=== PATIENT | female | born 1950 | race Caucasian/White ===

== ENCOUNTER → 2016-12-26 | Outpatient (CLI) | payer MEDICARE, OTHER ==
[~2016-12-26] MED LIST: ACETAMINOPHEN FT; ACETAMINOPHEN PO; ALBUTEROL MININEB; ALBUTEROL0.83 MG/ML IH; ALBUTEROL0.83 MG/ML INH; ALL DAY ALLERGY10 M3 GT; AMOX/K CLAV; ANALGESIC CREME86 GM TOP; ANTI FUNGAL AD; ASPER-FLEX85 GM; ASPER-FLEX85 GM TOP; ASPERCREME HE70.8 GM TP; ASPERCREME76.5 GM EPI; ATROVENT HFA12.9 GM INH; AURALGAN OTIC S10 M1 AD; AURALGAN OTIC S10 ML AD; AURALGAN OTIC S14 ML OT; BACID GT; BACID PO; BACITRACIN3.5 G1; BACITRACIN3.5 G1 TOP; BACITRACIN3.5 GM OU; BACTRIM DS TABL1 TA1 FT; BACTROBAN22 GM EXT; BACTROBAN22 GM TOP; BAYER CHEWABLE81 MG FT; BAYER CHEWABLE81 MG GT; BAYER CHEWABLE81 MG PEG; BETAMETHASONE D50 GM TOP; BISACODYL10 MG/SUPP PR; BORIC ACID AD; CALCIUM CITRATE1 T11 PO; CALMOSEPTINE O3.5 GM TOP; CARAFATE GT; CARAFATE1 G GT; CARAFATE1 G PO; CENTRAM-CA9 MG/15 ML FT; CENTRUM GT; CERTA VITE9 MG/15 ML GT; CERTAGEN GT; CERTAGEN PEG; CERTAGEN PO; CERTAVITE GT; CETIRIZINE5 MG/5 ML GT; CHILDREN'S160 MG/10 GT; CIPRO PO; CITRACAL + D CA1 TA1 GT; CLOTRIMAZOLE 1% AD; CLOTRIMAZOLE30 ML AD; DEPAKOTE SPRIN125 MG GT; DIASTAT ACUDIA1 EAC1; DIASTAT ACUDIAL1 KIT; DIASTAT ACUDIAL1 KIT RC; DIASTAT10 MG; DIASTAT10 MG PR; DIASTAT2.5 MG PR; DOXYCYCLINE PO; DUONEB 2.5-0.5 M3 ML NEB; E.E.S. 200200 MG/5 M GT; E.E.S. 200200 MG/51 PO; FAMOTIDINE GT; FEROSUL220 MG/5 M PEG; FISH OIL 1,0001 EACH GT; FLEET ENEMA133 M1 PR; FLEET ENEMA133 ML RC; FLONASE 0.05% N16 G1; FLONASE SENSIM9.9 ML; FLUTICASONE PRO16 GM; GAS RELIEF40 MG/0.1 FT; GAS RELIEF40 MG/0.1 GT; GAS RELIEF40 MG/0.1 PEG; GENASYME GT; GENASYME TOP; GLACIAL ACETIC A1 ML AD; GUAIFENESIN PEG; IMMUNOTHERAPY SUBQ; IPRAT-ALBUT 0.5-3 ML INH; IPRATR-ALBUTEROL3 ML IH; IPRATROPIUM0.2 MG/ML NEB; KEPPRA100 MG/ML FT; KEPPRA100 MG/ML PEG; KEPPRA100 MG/ML PO; KEPPRA1000 MG GT; KEPPRA1000 MG PEG; KEPPRA750 M1 GT; KEPPRA750 MG GT; KEPPRA750 MG PEG; KEPPRA750 MG PO; LACTULOSE10 G/15 M1 FT; LACTULOSE10 G/15 M1 PEG; LACTULOSE10 G/15 M2 PEG; LACTULOSE10 G/15 ML GT; LACTULOSE10 G/15 ML PO; LACTULOSE10 GM/15 M GT; LACTULOSE10 GM/151 GT; LAMICTAL GT; LAMICTAL PO; LAMICTAL150 MG DOB; LAMICTAL150 MG GT; LAMICTAL150 MG PEG; LAMICTAL25 MG FT; LAMICTAL25 MG GT; LAMICTAL25 MG PEG; LAMICTAL25 MG PO; LEVAQUIN PO; LEVETIRACETAM500 M1 GT; LEVOTHYROXINE75 MC1 PEG; LEVOTHYROXINE75 MCG PEG; LEVOTHYROXINE75 MCG PO; LEVOXYL75 MCG PO; LOVASTATIN10 MG GT; LOVASTATIN10 MG PEG; LOVASTATIN20 M1 FT; LOVASTATIN20 M2 PEG; MAPAP160 MG/51 PR; MEROPENEM IV; METHENAMINE HIPP1 GM GT; MEVACOR GT; MIRALAX17 GM FT; MIRALAX17 GM GT; MIRALAX17 GM PEG; MIRALAX255 GM GT; MULTIVITAMINS1 EAC3; MY FAVORITE MU237 ML PEG; MYCOSTATIN15 GM TOP; MYLICON40 MG/0.1 GT; MYLICON40 MG/0.6 GT; NEUTROGENA T TOP; NEUTROGENA T/G132 M1 TP; NEXIUM GT; NEXIUM PEG; NEXIUM40 M1 GT; NEXIUM40 M1 PO; NEXIUM40 MG/PACK GT; NEXIUM40 MG/PACK PO; NILSTAT PO; OMEGA 3 FISH OI1 CAP PEG; OMEGA 3 FISH1 CAP.EC GT; OYSTER CALCIUM500 MG GT; PATIENT'S PHARMACY; PHENERGAN PR; PHENERGAN12.5 M2 RC; PREVACID GT; PRILOSEC20 MG GT; PROVENTIL0.83 MG/ML IH; PULMICORT200 MCG/AE INH; Q-PAP160 MG/51 GT; RISAMINE OINTM113 GM; RISAMINE OINTM113 GM TOP; RISAMINE OINTM113 GM TP; ROBITUSSIN100 MG/51 GT; ROCEPHIN IV; SENNA LAXATIVE25 MG PO; SENNA8.6 M1 GT; SENNA8.6 M1 PEG; SENNA8.8 MG/5 M FT; SENNA8.8 MG/5 M GT; SENNA8.8 MG/5 M PEG; SINGULAIR GT; SOD BICARBONATE GT; SYNTHROID GT; SYNTHROID75 MCG GT; THERAGRAN1 TAB GT; TIROSINT75 MCG GT; TOBRADEX AD; TOBRADEX EYE DRO5 ML AD; TOBRADEX EYE DRO5 ML OU; TOBREX5 ML AD; TRILEPTAL GT; TROLAMINE1 ML TOP; TYLENOL325 MG/10. PEG; TYLENOL80 MG/0.2 PEG; VASOLEX OINTMEN30 GM TOP; VICKS VAPORUB O50 GM; VICKS VAPORUB O50 GM TOP; VIMPAT GT; VIMPAT100 MG GT; VIMPAT100 MG PEG; VIMPAT200 MG DOB; VIMPAT200 MG FT; VIMPAT200 MG GT; VIMPAT200 MG PEG; VIMPAT50 MG FT; VIMPAT50 MG GT; VIT D GT; VITAMIN D1000 UNI1 FT; VITAMIN D1000 UNI1 GT; VITAMIN D1000 UNI1 PEG; VITAMIN D1000 UNI1 PO; VITAMIN D1000 UNIT GT; VITAMIN D31000 UNI1 PO; VITAMIN D31000 UNI2 GT; VITAMIN D31000 UNIT GT; VOSOL HC O10 ML OTIC AD; VOSOL HC OTIC S10 ML; VOSOL HC OTIC S10 ML AD; ZOCOR10 MG PO; ZOFRAN4 MG/5 ML PO; ZONEGRAM GT; ZONEGRAN100 M1 FT; ZONEGRAN100 M1 GT; ZONEGRAN100 M1 PEG; ZONEGRAN100 MG GT; ZONEGRAN100 MG PEG; ZONEGRAN100 MG PO; ZOSYN IV; ZYRTEC10 M1 PEG; ZYRTEC10 M2 FT; ZYRTEC10 M2 GT; ZYRTEC10 M2 PEG; ZZ IMMUNOTHERAPY; [UNRECOGNIZED DRUG - MIXTURE] AD; [UNRECOGNIZED DRUG - OTHER] AD; [UNRECOGNIZED DRUG - OTHER] TOP; [UNRECOGNIZED DRUG - OTHER] TOP; [UNRECOGNIZED DRUG - REMARK] SQ
--- NOTE | ~2016-12-26 | XA189 ---
[facility] A Service of [facility] & [facility] RADIOLOGY TEXT RESULTS PATIENT: BRANDI CABALLERO LOCATION: [facility] : 54 UNIT #: [id number] AGE: [address]: Rivas Silverio MD SEX: F ORDER DR: [id number] [facility]. [place], [place] [address] [id number] O MR#: [id number] Acc #: [id number] NAME: BRANDI CABALLERO : 1950 SEX: F STUDY DATE/TIME: 12/26/2016 7:33 [facility] RO[facility]: STUDY DESCRIPTION: XA Replace GJ Tube Attending Physician: Rivas Silverio Sr., M.D. Referring Physician: Rivas Silverio Sr., M.D. Ordering Physician: Rivas Silverio Sr., M.D. Primary Care Physician: Fanny Hess MEDICAL IMAGING REPORT This report is preliminary unless electronic signature is present EXAM Gastrojejunostomy tube exchange INDICATIONS Malfunctioning gastrojejunostomy tube. The tube was used for nutritional support. MEDICATIONS ADMINISTERED IV Versed and Fentanyl for conscious sedation. Conscious sedation time was monitored by appropriately credentialed radiology nursing staff. Approximate sedation time was 55 minutes. FLUOROSCOPY TIME 5.4 minutes and the reference air kerma was 49 mGy CONSENT The risks, benefits and alternatives of the procedure were discussed with the patient's family indirect sales representative and informed consent was obtained. In the procedure room, a time-pit was performed confirming correct patient and procedure. All elements of maximum sterile-barrier technique utilized according to guidelines appropriate for the procedure. TECHNIQUE/FINDINGS A guidewire was advanced through the patient's existing GJ tube, however, the tube was clogged and I was unable to advance a guide wire complete through the tube. Therefore the tube was removed in its entirety. Next, a CT catheter and guidewire were negotiated into the jejunum. A small amount of contrast was injected confirming satisfactory positioning. The CT catheter was removed and next a 22-Filipino gastrojejunostomy tube was advanced over the guidewire. The tip of the tube is located in the proximal jejunum. The gastric retention balloon was filled with 10 mL of sterile water. Contrast was injected confirming satisfactory positioning. [facility] A Service of [facility] RADIOLOGY TEXT RESULTS PATIENT: BRANDI CABALLERO LOCATION: [facility] : 52 UNIT #: [id number] AGE: [address]: Rivas Silverio MD SEX: F ORDER DR: IMPRESSION Technically successful gastrojejunostomy tube replacement. Dictated by... Jairo Juan M.D. THIS IS AN ELECTRONICALLY VERIFIED REPORT Jairo Juan M.D. at 12/27/2016 9:32 AM ARS/isis TD: 12/26/2016 17:11 JOB #: [id number] MEDICAL IMAGING REPORT Page 1 of 1 COPY
== END | disposition home or self-care (01) ==
LOC: CIVR 06:23
DX: K94.23 Gastrostomy malfunction (principal)
CPT/HCPCS: C1769; C1887; J2250; J3010

== ENCOUNTER → 2017-02-04 | Outpatient (CLI) | payer MEDICARE, OTHER ==
--- NOTE | ~2017-02-04 | XA189 ---
[facility] A Service of [facility] RADIOLOGY TEXT RESULTS PATIENT: BRANDI CABALLERO LOCATION: [facility] : 52 UNIT #: [id number] AGE: [address]: MONICA SAVAGE SEX: F ORDER DR: [id number] [facility] [address] [place], [place] [address] [id number] O MR#: [id number] Acc #: [id number] NAME: BRANDI CABALLERO : 1950 SEX: F STUDY DATE/TIME: 02/04/2017 8:42 UNIT: [facility] ROOM: STUDY DESCRIPTION: XA Replace GJ Tube Attending Physician: Monica Savage Ordering Physician: Rivas Silverio Sr., M.D. Primary Care Physician: Fanny Hess MEDICAL IMAGING REPORT This report is preliminary unless electronic signature is present EXAM GJ-tube exchange under fluoroscopy. HISTORY SUPPLIED Plugged J-tube with colon J-tube. Consent was obtained from the patient's guardian. The patient was brought to the angio suite, placed in the supine position. The skin was prepped over the anterior abdominal wall at the site of the J-tube. Viscous lidocaine was applied to the site. The area was draped and sterilely cleansed with chlorhexidine solution. PROCEDURE Utilizing maximal sterile barrier technique including gloves, gowns, masks, hat and shoe covers, an 0.035 wire was inserted through the J-tube port. This was plugged and could not pass, and was passed through the G-tube port and along the side of the GJ tube past the ligament of Treitz. The tube was then subsequently replaced without difficulty. Total fluoroscopy time was 2.7 minutes. Total exposure 26 mGy air kerma standard three images are obtained. CONCLUSION Successful replacement of the GJ-tube under fluoroscopy. Dictated by... Ronal Cornejo M.D. THIS IS AN ELECTRONICALLY VERIFIED REPORT Ronal Cornejo M.D. at 02/04/2017 5:13 PM Matthieu TD: 02/04/2017 15:19 [facility]. [facility] A Service of [facility] & [facility] RADIOLOGY TEXT RESULTS PATIENT: BRANDI CABALLERO LOCATION: [facility] #: [id number] : 54 UNIT #: [id number] AGE: [address]: MONICA SAVAGE SEX: F ORDER DR: JOB #: [id number] MEDICAL IMAGING REPORT Page 1 of 1 COPY
== END | disposition home or self-care (01) ==
LOC: CIVR 06:35
DX: K94.13 Enterostomy malfunction (principal)
CPT/HCPCS: Q9967

== ENCOUNTER → 2017-02-16 | Outpatient (CLI) | payer MEDICARE, OTHER ==
[2017-02-16 07:35] LABS: URINE APPEARANCE TURBID; URINE BILIRUBIN NEG (NEG); URINE BLOOD 2+ (NEG); URINE COLOR YELLOW; URINE GLUCOSE NEG (NEG); URINE KETONE NEG (NEG); URINE LEUKOCYTE ESTERASE 3+ (NEG); URINE NITRATE POS (NEG); URINE PROTEIN NEG (NEG); URINE SPECIFIC GRAVITY 1.012 (1.003-1.035); URINE UROBILINOGEN 0.2 MG/DL (NEG)
[2017-02-16 07:37] LABS: BASOPHIL% 0.1 % (0-2.5); HEMATOCRIT 28.7 % (35.0-45.0); HEMOGLOBIN 9.5 gm/dL (12.0-16.0); LYMPHOCYTE# 1.8 X10e3 (1.0-3.5); LYMPHOCYTE% 6.2 % (17.0-45.0); MEAN CORPUSCULAR HEMOGLOBIN 33.5 PG (28-34); MEAN CORPUSCULAR HGB CONC 33.1 g/dL (30-36); MEAN PLATELET VOLUME 9.8 FL (6.5-11.5); MONOCYTE# 1.5 X10e3 (0-1.0); MONOCYTE% 5.1 % (3.0-12.0); NEUTROPHIL# 25.4 X10e3 (1.5-7.1); NEUTROPHIL% 88.6 % (40-75); PLATELET COUNT 207 X10e3 (140-420); RED BLOOD COUNT 2.84 X10e (3.90-5.30); RED CELL DISTRIBUTION WIDTH 12.2 % (11.0-15.5)
[2017-02-16 07:38] LABS: CULTURE INDICATED? YES; DIFF IND YES; URINE BACTERIA AUWI 4+ (NEGATIVE); URINE SQUAMOUS EPITHELIAL CELL FEW /[HPF]; UWBCS1 AUWI INNUM (0-5); WHITE BLOOD COUNT 28.7 X10e3 (4.0-10.5)
[2017-02-16 07:51] LABS: BUN/CREATININE RATIO 17.5; CALCIUM SERUM 8.7 mg/dL (8.4-10.2); CREATININE SERUM 0.8 mg/dL (0.6-1.4)
[2017-02-16 08:01] LABS: PLATELET ESTIMATE NORMAL (NORMAL)
[2017-02-16 08:27] LABS: URINE SOURCE CLEAN CATCH
== END | disposition home or self-care (01) ==
LOC: CHAZ 06:55
PROVIDERS: Internal Medicine
DX: D72.829 Elevated white blood cell count, unspecified (principal)
CPT/HCPCS: 80048; 81003; 85025; 87086; 87088; 87186

== ENCOUNTER → 2017-02-26 | Outpatient (CLI) | payer MEDICARE, OTHER ==
--- NOTE | ~2017-02-26 | CT4 ---
[facility] A Service of [facility] RADIOLOGY TEXT RESULTS PATIENT: BRANDI CABALLERO [facility] UNIT #: [id number] AGE: [address]: Dillon Manley MD SEX: F ORDER DR: [id number] [facility]. [place], [place] [address] [id number] O MR#: [id number] Acc #: [id number] NAME: BRANDI CABALLERO : 1950 SEX: F STUDY DATE/TIME: 02/26/2017 8:15 UNIT: [facility] ROOM: STUDY DESCRIPTION: CT Abd and Pelv Wo Cont Attending Physician: Dillon Manley M.D. Referring Physician: Dillon Manley M.D. Ordering Physician: Dillon Manley M.D. Primary Care Physician: Fanny Hess MEDICAL IMAGING REPORT This report is preliminary unless electronic signature is present EXAM CT abdomen and pelvis INDICATION Urinary tract infection. Stone protocol. Incontinence. Recurrent UTIs. TECHNIQUE CT of the abdomen and pelvis without contrast. Coronal and sagittal reconstructions were obtained. This CT exam was performed with one or more of the following radiation dose reduction techniques: automatic exposure control, adjustment of mA and/or kV according to patient size, and iterative reconstruction. COMPARISON CT abdomen dated 11/22/2014 FINDINGS ABDOMEN: There is minimal linear atelectasis or scarring in both lung bases. The solid abdominal organs are within normal limits. The gallbladder is surgically absent. There is a small left adrenal adenoma that is unchanged. There is no renal calculi. No hydronephrosis. The bowel is not dilated. Patient has a percutaneous gastrojejunostomy tube. The tip is in the proximal jejunum. No pathologically enlarged retroperitoneal or mesenteric lymph nodes. The appendix is normal. PELVIS: Bladder is unremarkable. No bladder calculi. No enlarged pelvic or inguinal lymph nodes. The uterus and ovaries are unremarkable. No acute osseous abnormalities. There is some dystrophic ossification [facility] A Service of [facility] RADIOLOGY TEXT RESULTS PATIENT: BRANDI CABALLERO [id number] 52 UNIT #: [id number] AGE: [address]: Dillon Manley MD SEX: F ORDER DR: associated with the adductor muscle groups. There has been prior percutaneous pinning of the left femur. There is generalized muscular atrophy in the pelvis and lower extremities. IMPRESSION No focal abnormalities in the kidneys, ureter, or bladder to account for the patient's symptoms. Dictated by... Napoleon Coffey M.D. THIS IS AN ELECTRONICALLY VERIFIED REPORT Napoleon Coffey M.D. at 02/26/2017 1:42 PM JUANITA/rand TD: 02/26/2017 11:30 JOB #: [id number] MEDICAL IMAGING REPORT Page 1 of 1 COPY
== END | disposition home or self-care (01) ==
LOC: CCAT 07:50
DX: N39.45 Continuous leakage (principal); Z87.440 Personal history of urinary (tract) infections
CPT/HCPCS: 74176

== ENCOUNTER → 2017-03-07 | Outpatient (CLI) | payer MEDICARE, OTHER ==
--- NOTE | ~2017-03-07 | XA189 ---
[facility] A Service of [facility] & [facility] RADIOLOGY TEXT RESULTS PATIENT: BRANDI CABALLERO LOCATION: [facility] : 52 UNIT #: [id number] AGE: [address]: MARRY COOK SEX: F ORDER DR: [id number] [facility] [address] [place], [place] [address] [id number] O MR#: [id number] Acc #: [id number] NAME: BRANDI CABALLERO : 1950 SEX: F STUDY DATE/TIME: 03/07/2017 8:17 UNIT: [facility] ROOM: STUDY DESCRIPTION: XA Replace GJ Tube Attending Physician: Marry Cook Referring Physician: Russell Amaral M.D. Ordering Physician: Russell Amaral M.D. Primary Care Physician: Rivas Silverio Sr., M.D. MEDICAL IMAGING REPORT This report is preliminary unless electronic signature is present EXAM Gastrojejunostomy tube replacement under fluoroscopic guidance HISTORY Existing tube is malfunctioning. TECHNIQUE Informed consent was obtained from the patient's branch service representative. Conscious sedation was employed with intravenous Versed and fentanyl that was administered by nursing who was present and monitoring the patient during examination. Physician face time during conscious sedation 30 minutes. A total of one spot film was obtained with fluoroscopy time at 2.7 minutes and a dose of 21 mGy. The existing tube was injected with 10 mL of contrast prior to removing it over a guidewire to opacify the jejunum. The new tube was then passed over the same guide wire with the tip positioned in the proximal jejunum. The balloon was inflated and cinched back and the tube was injected with contrast to confirm good positioning. The patient tolerated the procedure well. Approximately 15-20 mL of contrast was used. IMPRESSION Successful replacement of the patient's gastrojejunostomy tube under fluoroscopic guidance. Dictated by... Dwight Parkinson M.D. THIS IS AN ELECTRONICALLY VERIFIED REPORT Dwight Parkinson M.D. at 03/08/2017 11:22 AM DIAMOND/naima TD: 03/07/2017 20:12 [facility] Service of [facility] & [facility] RADIOLOGY TEXT RESULTS PATIENT: BRANDI CABALLERO LOCATION: [facility] #: [id number] : 54 UNIT #: [id number] AGE: [address]: MARRY COOK SEX: F ORDER DR: JOB #: [id number] MEDICAL IMAGING REPORT Page 1 of 1 COPY
== END | disposition home or self-care (01) ==
LOC: CIVR 07:11
DX: Z43.1 Encounter for attention to gastrostomy (principal); K31.84 Gastroparesis; G47.30 Sleep apnea, unspecified; F79 Unspecified intellectual disabilities; E87.1 Hypo-osmolality and hyponatremia; Z88.1 Allergy status to other antibiotic agents; Z88.8 Allergy status to other drugs, medicaments and biological substances; Z87.09 Personal history of other diseases of the respiratory system
CPT/HCPCS: J2250; J3010

== ENCOUNTER → 2017-03-17 | Outpatient (CLI) | payer MEDICARE, OTHER | END | disposition home or self-care (01) | LOC: CSSDAY 09:09 | DX: M81.0 Age-related osteoporosis without current pathological fracture (principal) | CPT/HCPCS: 96372; J0897 ==

== ENCOUNTER → 2017-03-26 | Outpatient (CLI) | payer MEDICARE, OTHER | END | disposition home or self-care (01) | LOC: CRAD 09:43 | DX: R13.10 Dysphagia, unspecified (principal); R13.13 Dysphagia, pharyngeal phase; R13.11 Dysphagia, oral phase | CPT/HCPCS: 74230; 92611; G8996-GN; G8997-GN; G8998-GN ==

== ENCOUNTER 2017-04-08 09:26 | Emergency (ER) | payer MEDICARE, OTHER ==
[~2017-04-08] VITALS: Ht 163.1 cm; Wt 49.9 kg
--- NOTE | ~2017-04-08 | CT71 ---
[facility] A Service of [facility] & [facility] RADIOLOGY TEXT RESULTS PATIENT: BRANDI CABALLERO LOCATION: [facility] : 52 UNIT #: [id number] AGE: [address]: Shaun Farmer MD SEX: F ORDER DR: [id number] [facility] [address] [place], [place] [address] [id number] MR#: [id number] Acc #: [id number] NAME: BRANDI CABALLERO : 1950 SEX: F STUDY DATE/TIME: 04/08/2017 10:56 UNIT: [facility] ROOM: STUDY DESCRIPTION: CT Head Wo Contrast Attending Physician: Shaun Farmer M.D. Ordering Physician: Shaun Farmer M.D. Primary Care Physician: Rivas Silverio Sr., M.D. MEDICAL IMAGING REPORT This report is preliminary unless electronic signature is present EXAM Noncontrast CT head. DATE 04/08/2017 HISTORY 66-year-old female with seizure today. History of seizures and cerebral infarcts. Profound mental retardation. COMPARISON Noncontrast CT head, 06/10/2015. TECHNIQUE This CT exam was performed with one or more of the following radiation dose reduction techniques: automatic exposure control, adjustment of mA and/or kV according to patient size, and iterative reconstruction. FINDINGS Study is mildly degraded by patient motion. Encephalomalacic change is demonstrated throughout the right cerebral hemisphere, greatest in the right temporal lobe, with porencephalic dilation of the posterior horn and atrium of the right lateral ventricle, similar to prior. There is advanced atrophy of the cerebellum which may be related to chronic Dilantin use. This also appears similar to prior. No definite acute intracranial hemorrhage, mass lesion, midline shift, or evidence of evolving infarct at this time. Paranasal sinuses and mastoid air cells appear clear. No acute calvarial abnormalities identified. IMPRESSION 1. Mild motion degradation without evidence of acute finding. 2. Encephalomalacic change throughout the right cerebral hemisphere with compensatory dilation of the right ventricle, similar to prior. [facility] A Service of [facility] RADIOLOGY TEXT RESULTS PATIENT: BRANDI CABALLERO LOCATION: [facility] : 52 UNIT #: [id number] AGE: [address]: Shaun Farmer MD SEX: F ORDER DR: 3. Advanced cerebellar atrophy, unchanged from prior. Dictated by... Ana Chaparro M.D. THIS IS AN ELECTRONICALLY VERIFIED REPORT Ana Chaparro M.D. at 04/10/2017 7:33 AM ILA/maria t TD: 04/08/2017 16:20 JOB #: [id number] MEDICAL IMAGING REPORT Page 1 of 1 COPY
--- NOTE | ~2017-04-08 | EKG ---
PATIENT: BRANDI CABALLERO UNIT #: [id number] Ventricular Rate: 63 BPM Atrial Rate: 63 BPM P-R Interval: 262 ms QRS Duration: 94 ms Q-T Interval: 402 ms QTC Calculation(Bezet): 411 ms P [place]: 52 degrees Calculated R [place]: 51 degrees Calculated T [place]: 44 degrees Diagnosis Line: Sinus rhythm with 1st degree A-V block Diagnosis Line: Low voltage QRS Diagnosis Line: Borderline ECG Diagnosis Line: When compared with ECG of 09-SEP-2016 11:09, Diagnosis Line: Vent. rate has decreased BY 33 BPM Diagnosis Line: Confirmed by VINCE KAPLAN MD ([id number]) on 04/09/2017 Diagnosis Line: 12:04:35 AM INTERPRETING MD: EUSEBIO ZENG
[~2017-04-08 09:26] MED LIST changes: -ALBUTEROL MININEB; -ALL DAY ALLERGY10 M3 GT; -ANALGESIC CREME86 GM TOP; -ANTI FUNGAL AD; -ASPER-FLEX85 GM; -ATROVENT HFA12.9 GM INH; -BACITRACIN3.5 G1; -BACITRACIN3.5 G1 TOP; -BACITRACIN3.5 GM OU; -DIASTAT ACUDIA1 EAC1; -DIASTAT2.5 MG PR; -FISH OIL 1,0001 EACH GT; -FLONASE SENSIM9.9 ML; -FLUTICASONE PRO16 GM; -KEPPRA100 MG/ML PO; -LACTULOSE10 GM/15 M GT; -LACTULOSE10 GM/151 GT; -LAMICTAL150 MG DOB; -LEVETIRACETAM500 M1 GT; -LEVOTHYROXINE75 MC1 PEG; -LOVASTATIN10 MG GT; -LOVASTATIN10 MG PEG; -MAPAP160 MG/51 PR; -MIRALAX17 GM GT; -MULTIVITAMINS1 EAC3; -NEXIUM40 M1 GT; -NEXIUM40 M1 PO; -PATIENT'S PHARMACY; -RISAMINE OINTM113 GM; -SENNA LAXATIVE25 MG PO; -SENNA8.6 M1 GT; -SOD BICARBONATE GT; -TIROSINT75 MCG GT; -TOBRADEX EYE DRO5 ML OU; -VICKS VAPORUB O50 GM; -VICKS VAPORUB O50 GM TOP; -VIMPAT200 MG DOB; -VITAMIN D31000 UNI1 PO; -VITAMIN D31000 UNI2 GT; -VITAMIN D31000 UNIT GT; -ZONEGRAM GT; -ZYRTEC10 M1 PEG; -[UNRECOGNIZED DRUG - MIXTURE] AD
[2017-04-08 10:20] LABS: BASOPHIL% 0.6 % (0-2.5); EOSINOPHIL# 0.2 X10e3 (0-0.7); EOSINOPHIL% 3.2 % (0.0-7.0); HEMATOCRIT 27.1 % (35.0-45.0); HEMOGLOBIN 9.2 gm/dL (12.0-16.0); LYMPHOCYTE# 0.9 X10e3 (1.0-3.5); LYMPHOCYTE% 17.1 % (17.0-45.0); MEAN CELL VOLUME 101.7 FL (83-96); MEAN CORPUSCULAR HEMOGLOBIN 34.5 PG (28-34); MEAN PLATELET VOLUME 8.3 FL (6.5-11.5); MONOCYTE# 0.6 X10e3 (0-1.0); MONOCYTE% 10.4 % (3.0-12.0); NEUTROPHIL# 3.7 X10e3 (1.5-7.1); NEUTROPHIL% 68.7 % (40-75); PLATELET COUNT 226 X10e3 (140-420); RED BLOOD COUNT 2.66 X10e (3.90-5.30); RED CELL DISTRIBUTION WIDTH 12.8 % (11.0-15.5); WHITE BLOOD COUNT 5.4 X10e3 (4.0-10.5)
[2017-04-08 10:22] LABS: DIFF IND NO
[2017-04-08 10:35] LABS: POC - CKMB 2.9 ng/mL (0.0-7.9); POC - TROPONIN <0.05 ng/mL (<=0.05)
[2017-04-08 11:22] LABS: ALBUMIN SERUM 3.3 g/dL (3.5-5.0); ALKALINE PHOSPHATASE 112 U/L (32-92); ALT (SGPT) 30 U/L (10-40); AST (SGOT) 24 U/L (10-42); BILIRUBIN,TOTAL 0.2 mg/dL (0.2-2.0); BLOOD UREA NITROGEN 13 mg/dL (9-23); CALCIUM SERUM 8.4 mg/dL (8.4-10.2); CARBON DIOXIDE 21 mmol/L (22-31); CHLORIDE 114 mmol/L (100-111); CREATININE SERUM 0.5 mg/dL (0.6-1.4); GLOM FILT RATE Estimated 102.3 mL/min (>60); GLUCOSE FASTING 88 mg/dL (70-110); POTASSIUM 4.5 mmol/L (3.5-5.1); PROTEIN TOTAL SERUM 6.1 g/dL (6.0-8.3); SODIUM 137 mmol/L (135-145)
[2017-04-08 11:23] LABS: BILIRUBIN, DIRECT <0.1 mg/dL (0.0-0.2); BILIRUBIN,INDIRECT 0.1 mg/dL (0.0-0.9)
[2017-04-08 12:08] LABS: URINE SOURCE CLEAN CATCH
[2017-04-08 12:13] LABS: URINE APPEARANCE CLEAR; URINE BILIRUBIN NEG (NEG); URINE BLOOD NEG (NEG); URINE COLOR YELLOW; URINE GLUCOSE NEG (NEG); URINE KETONE NEG (NEG); URINE LEUKOCYTE ESTERASE NEG (NEG); URINE NITRATE NEG (NEG); URINE PH 7.5 (5-8); URINE PROTEIN NEG (NEG); URINE UROBILINOGEN 0.2 MG/DL (NEG)
[2017-04-08 12:15] LABS: CULTURE INDICATED? NO
[2017-05-07] MEDS ORDERED: BACITRACIN3.5 GM OU (06:47)
[2017-05-07] MEDS ORDERED: FISH OIL 1,0001 EACH GT (06:47)
[2017-05-07] MEDS ORDERED: NEXIUM40 M1 PO (06:48)
[2017-05-07] MEDS ORDERED: RISAMINE OINTM113 GM (06:48)
[2017-05-07] MEDS ORDERED: FLUTICASONE PRO16 GM (06:48)
[2017-05-07] MEDS ORDERED: SENNA LAXATIVE25 MG PO (06:49)
[2017-05-07] MEDS ORDERED: ALBUTEROL MININEB (06:50)
[2017-05-07] MEDS ORDERED: BACITRACIN3.5 G1 (06:51)
[2017-05-07] MEDS ORDERED: DIASTAT ACUDIA1 EAC1 (06:51)
[2017-05-07] MEDS ORDERED: TOBRADEX EYE DRO5 ML OU (07:08)
[2017-05-07] MEDS ORDERED: ASPER-FLEX85 GM (07:09)
[2017-05-07] MEDS ORDERED: VICKS VAPORUB O50 GM (07:09)
[2017-05-07] MEDS ORDERED: VITAMIN D31000 UNI1 PO (07:10)
[2017-05-07] MEDS ORDERED: VIMPAT200 MG DOB (07:10)
[2017-05-07] MEDS ORDERED: ZONEGRAN100 MG PO (07:10)
[2017-05-07] MEDS ORDERED: ATROVENT HFA12.9 GM INH (07:11)
[2017-05-07] MEDS ORDERED: LACTULOSE10 GM/151 GT (07:12)
[2017-05-07] MEDS ORDERED: LAMICTAL150 MG DOB (07:12)
[2017-05-07] MEDS ORDERED: KEPPRA100 MG/ML PO (07:13)
[2017-05-07] MEDS ORDERED: VITAMIN D31000 UNIT GT (07:14)
[2017-05-07] MEDS ORDERED: MULTIVITAMINS1 EAC3 (12:54)
[2017-05-07] MEDS ORDERED: CLOTRIMAZOLE30 ML AD (17:10)
[2017-05-07] MEDS ORDERED: MIRALAX17 GM PEG (17:11)
[2017-05-07] MEDS ORDERED: BORIC ACID AD (22:32)
[2017-05-07] MEDS ORDERED: LOVASTATIN10 MG PEG (22:35)
[2017-05-07] MEDS ORDERED: LEVOTHYROXINE75 MC1 PEG (22:37)
[2017-05-07] MEDS ORDERED: ZYRTEC10 M1 PEG (22:40)
[2017-05-07] MEDS ORDERED: TYLENOL325 MG/10. PEG (22:41)
[2017-05-21] MEDS ORDERED: PATIENT'S PHARMACY (10:39)
[2017-05-21] MEDS ORDERED: ALL DAY ALLERGY10 M3 GT (10:41)
[2017-05-21] MEDS ORDERED: CERTAVITE GT (10:41)
[2017-05-21] MEDS ORDERED: BORIC ACID AD (10:41)
[2017-05-21] MEDS ORDERED: FISH OIL 1,0001 EACH GT (10:42)
[2017-05-21] MEDS ORDERED: LACTULOSE10 GM/15 M GT (10:42)
[2017-05-21] MEDS ORDERED: LAMICTAL GT ×2 (10:42→10:43)
[2017-05-21] MEDS ORDERED: GAS RELIEF40 MG/0.1 GT (10:42)
[2017-05-21] MEDS ORDERED: LEVETIRACETAM500 M1 GT (10:43)
[2017-05-21] MEDS ORDERED: TIROSINT75 MCG GT (10:43)
[2017-05-21] MEDS ORDERED: LOVASTATIN10 MG GT (10:44)
[2017-05-21] MEDS ORDERED: NEXIUM40 M1 GT (10:45)
[2017-05-21] MEDS ORDERED: MIRALAX17 GM GT (10:46)
[2017-05-21] MEDS ORDERED: SENNA8.6 M1 GT (10:46)
[2017-05-21] MEDS ORDERED: SOD BICARBONATE GT (10:47)
[2017-05-21] MEDS ORDERED: VIMPAT100 MG GT (10:47)
[2017-05-21] MEDS ORDERED: VITAMIN D31000 UNI2 GT (10:48)
[2017-05-21] MEDS ORDERED: ZONEGRAM GT (10:49)
[2017-05-21] MEDS ORDERED: ZYRTEC10 M2 GT (10:49)
[2017-05-21] MEDS ORDERED: FLONASE SENSIM9.9 ML (10:50)
[2017-05-21] MEDS ORDERED: ANTI FUNGAL AD (10:50)
[2017-05-21] MEDS ORDERED: [UNRECOGNIZED DRUG - MIXTURE] AD (10:51)
[2017-05-21] MEDS ORDERED: RISAMINE OINTM113 GM TOP (10:51)
[2017-05-21] MEDS ORDERED: VICKS VAPORUB O50 GM TOP (10:52)
[2017-05-21] MEDS ORDERED: ANALGESIC CREME86 GM TOP (10:52)
[2017-05-21] MEDS ORDERED: TOBRADEX EYE DRO5 ML AD (10:52)
[2017-05-21] MEDS ORDERED: DIASTAT2.5 MG PR (10:53)
[2017-05-21] MEDS ORDERED: MAPAP160 MG/51 PR (10:53)
[2017-05-21] MEDS ORDERED: BACITRACIN3.5 G1 TOP (10:54)
== END 2017-04-08 14:30 | disposition home or self-care (01) ==
LOC: CED 09:26
PROVIDERS: Emergency Medicine
DX: G40.909 Epilepsy, unspecified, not intractable, without status epilepticus (principal); Z88.1 Allergy status to other antibiotic agents; Z88.8 Allergy status to other drugs, medicaments and biological substances; Z79.899 Other long term (current) drug therapy
CPT/HCPCS: 36415; 51702; 70450; 80048; 80076; 81003; 82553; 82947; 84484; 85025; 93005; 96374; 99285; J1953

== ENCOUNTER → 2017-05-01 | Outpatient (CLI) | payer MEDICARE, OTHER ==
[~2017-05-01] MED LIST changes: +ALBUTEROL MININEB; +ALL DAY ALLERGY10 M3 GT; +ANALGESIC CREME86 GM TOP; +ANTI FUNGAL AD; +ASPER-FLEX85 GM; +ATROVENT HFA12.9 GM INH; +BACITRACIN3.5 G1; +BACITRACIN3.5 G1 TOP; +BACITRACIN3.5 GM OU; +DIASTAT ACUDIA1 EAC1; +DIASTAT2.5 MG PR; +FISH OIL 1,0001 EACH GT; +FLONASE SENSIM9.9 ML; +FLUTICASONE PRO16 GM; +KEPPRA100 MG/ML PO; +LACTULOSE10 GM/15 M GT; +LACTULOSE10 GM/151 GT; +LAMICTAL150 MG DOB; +LEVETIRACETAM500 M1 GT; +LEVOTHYROXINE75 MC1 PEG; +LOVASTATIN10 MG GT; +LOVASTATIN10 MG PEG; +MAPAP160 MG/51 PR; +MIRALAX17 GM GT; +MULTIVITAMINS1 EAC3; +NEXIUM40 M1 GT; +NEXIUM40 M1 PO; +PATIENT'S PHARMACY; +RISAMINE OINTM113 GM; +SENNA LAXATIVE25 MG PO; +SENNA8.6 M1 GT; +SOD BICARBONATE GT; +TIROSINT75 MCG GT; +TOBRADEX EYE DRO5 ML OU; +VICKS VAPORUB O50 GM; +VICKS VAPORUB O50 GM TOP; +VIMPAT200 MG DOB; +VITAMIN D31000 UNI1 PO; +VITAMIN D31000 UNI2 GT; +VITAMIN D31000 UNIT GT; +ZONEGRAM GT; +ZYRTEC10 M1 PEG; +[UNRECOGNIZED DRUG - MIXTURE] AD
--- NOTE | ~2017-05-01 | CT57 ---
[facility] A Service of [facility] & [facility] RADIOLOGY TEXT RESULTS PATIENT: BRANDI CABALELRO LOCATION: [facility] : 54 UNIT #: [id number] AGE: [address]: Rivas Silverio MD SEX: F ORDER DR: [id number] [facility] [address] [place], [place] [address] [id number] O MR#: [id number] Acc #: [id number] NAME: BRANDI CABALLERO : 1950 SEX: F STUDY DATE/TIME: 05/01/2017 7:40 UNIT: [facility] ROOM: STUDY DESCRIPTION: CT Chest Wo Cont Attending Physician: Rivas Silverio Sr., M.D. Referring Physician: Rivas Silverio Sr., M.D. Ordering Physician: Rivas Silverio Sr., M.D. Primary Care Physician: Rivas Silverio Sr., M.D. MEDICAL IMAGING REPORT This report is preliminary unless electronic signature is present EXAM CT chest without contrast, 05/01/2017 HISTORY Abnormal chest x-ray with left lower lobe lung density, possible aspiration pneumonia. History of cerebral infarct, seizures, hypothyroidism, dysphagia. Frequent aspiration. Sleep apnea. Gastroparesis. Asthma. COMPARISON There is no recent chest x-ray at this institution for comparison. The most recent chest x-ray at this facility is 09/17/2016. There is no documentation at location of any more recent chest imaging studies, either. Correlation is made to CT abdomen and pelvis lung windows 02/26/2017, CT chest without contrast 12/03/2014. PROCEDURE 5.0 mm axial images through the chest without contrast. Sagittal and coronal reformatted images were obtained. This CT exam was performed with one or more of the following radiation dose reduction techniques: automatic exposure control, adjustment of mA and/or kV according to patient size, and iterative reconstruction. FINDINGS Study is significantly degraded by patient motion. Ill-defined alveolar infiltrates are seen predominantly in a peribronchial and peripheral distribution in the bilateral lower lobes, lingula, and to a lesser degree, the posterior right upper lobe. There is some mild band-like subsegmental atelectasis within the posterior-inferior left lower lobe and within the medial right middle lobe. No pleural effusion. Stable cardiac enlargement. Mild left anterior descending coronary artery calcifications. Trace left pleural fluid. No pathologic adenopathy is [facility] A Service of [facility] & [facility] RADIOLOGY TEXT RESULTS PATIENT: BRANDI CABALLERO LOCATION: [facility] : 52 UNIT #: [id number] AGE: [address]: Rivas Silverio MD SEX: F ORDER DR: seen. Left chest wall generator device is seen with lead extending toward the left neck. Enteric tube is seen within the stomach, incompletely included in the imaging field of view. Cholecystectomy. 1.9 cm left adrenal adenoma unchanged from 09/24/2012. Benign coarse calcifications are seen within each breast. Kyphotic curvature of the cervical and thoracic spine. No acute osseous abnormalities are identified. IMPRESSION 1. The study is significantly degraded by patient motion. 2. Ill-defined peribronchiolar and peripheral airspace disease within the bilateral lower lobes, and to a lesser grade lingula and posterior right upper lobe, thought to represent changes of pneumonia in the appropriate clinical context. Alternatively, this may represent sequelae of aspiration, given the provided clinical history. 3. Trace left pleural effusion. 4. Mild cardiomegaly with coronary artery calcifications. 5. Stable left adrenal adenoma. 6. Cholecystectomy. Dictated by... Ana Chaparro M.D. THIS IS AN ELECTRONICALLY VERIFIED REPORT Ana Chaparro M.D. at 05/01/2017 12:27 PM Miya TD: 05/01/2017 11:37 JOB #: [id number] MEDICAL IMAGING REPORT Page 1 of 1 COPY
== END | disposition home or self-care (01) ==
LOC: CCAT 07:19
DX: J98.4 Other disorders of lung (principal); R93.8 Abnormal findings on diagnostic imaging of other specified body structures; I51.7 Cardiomegaly; D35.02 Benign neoplasm of left adrenal gland; I25.10 Atherosclerotic heart disease of native coronary artery without angina pectoris; Z90.49 Acquired absence of other specified parts of digestive tract
CPT/HCPCS: 71250

== ENCOUNTER → 2017-05-07 | Outpatient (CLI) | payer MEDICARE, OTHER ==
[~2017-05-07] VITALS: Ht 162.6 cm; Wt 48.0 kg
--- NOTE | ~2017-05-07 | XA136 ---
[facility] A Service of [facility] & [facility] RADIOLOGY TEXT RESULTS PATIENT: BRANDI GIRON [facility] UNIT #: [id number] AGE: [address]: MONICA SAVAGE SEX: F ORDER DR: [id number] [facility] [address] [place], [place] [address] [id number] O MR#: [id number] Acc #: [id number] NAME: BRANDI GIRON : 1950 SEX: F STUDY DATE/TIME: 05/07/2017 13:02 UNIT: [facility] ROOM: STUDY DESCRIPTION: XA Inj G/J/C/D or JG Tube Attending Physician: Monica Savage Ordering Physician: Rivas Silverio Sr., M.D. Primary Care Physician: Rivas Silverio Sr., M.D. MEDICAL IMAGING REPORT This report is preliminary unless electronic signature is present EXAM Gastrojejunostomy tube replacement INDICATION Ms. Giron is a 66-year-old lady who has a hole in her gastrojejunostomy tube. She has been referred for replacement of this catheter. The procedure was explained to the patient's inside technical sales representative including risks, benefits, potential complications and potential for alternative forms of treatment. Informed consent was obtained and prior to initiating the procedure a formal time-out procedure was performed. Using all elements maximal sterile barrier technique including hand hygiene, caps, sterile gowns, gloves and masks the upper abdomen was prepped with 2% Chlorhexidine for cutaneous antisepsis and covered with a large sterile sheet. Initial case picker image was obtained which appeared to show the tip of the gastrojejunostomy catheter terminating within the antrum of the stomach. Because of the hole within the catheter, I advanced a 4-Japanese [place] catheter through the gastric port and injected contrast which confirmed intraluminal location. At this point a Stiff Glidewire was advanced through the catheter and it was removed over a wire. A C2 catheter was advanced over the wire and was used to direct the wire towards the duodenum. I was able to manipulate the wire into the third portion of the duodenum. A new gastrojejunostomy catheter was advanced over the wire and was positioned within the small bowel. Contrast was injected through the jejunostomy port which confirmed location within the small bowel and contrast also confirmed location within the stomach of the gastric port. Position was confirmed with a final radiographic image. Patient tolerated the procedure well and there were no immediate complications. She did receive moderate sedation consisting of 0.25 mg of Versed and 25 mcg of fentanyl. I supervised the IVR nurse and monitored the patient's vital signs for a total of 25 minutes of [id number]-iioi time. Total fluoroscopy time was 6.9 minutes. [facility] A Service of [facility] RADIOLOGY TEXT RESULTS PATIENT: BRANDI GIRON LOCATION: [facility] : 52 UNIT #: [id number] AGE: [address]: MONICA SAVAGE SEX: F ORDER DR: was 146 mGy. IMPRESSION Successful gastrojejunostomy tube exchange as noted above. Fluoroscopy was used during the procedure and permanent images were saved. Dictated by... Gricelda Villafuerte M.D. THIS IS AN ELECTRONICALLY VERIFIED REPORT Gricelda Villafuerte M.D. at 05/08/2017 2:44 PM MAHSA/rand TD: 05/08/2017 12:53 JOB #: [id number] MEDICAL IMAGING REPORT Page 1 of 1 COPY
== END | disposition home or self-care (01) ==
LOC: CIVR 12:17
DX: Z46.59 Encounter for fitting and adjustment of other gastrointestinal appliance and device (principal)
CPT/HCPCS: 99152; 99153; C1769; J2250; J3010